=== PATIENT | female | born 1975 | race Caucasian/White ===

== ENCOUNTER 2023-07-30 23:24 | Emergency (ER) | payer BC, SELFPAY ==
[2023-07-30 23:37] VITALS: BP 192/109
[2023-07-30] MEDS: ZOFRAN 4 MG IV (23:52)
[2023-07-30] MEDS: DILAUDID 0.5 MG IV (23:52)
[2023-07-31 00:03] VITALS: BP 179/100
[2023-07-31 00:05] LABS: % Basophils 0.6 % (0-2); % Eosinophils 0.6 % (0-6); % Immature Granulocytes 0.3 % (0-0.5); % Lymphocytes 28.3 % (20.5-51.1); % Monocytes 9.5 % (1.7-9.3); % Neutrophils 60.7 % (42.2-75.2); Absolute Basophils 0.1 10^3/uL (0-0.2); Absolute Eosinophils 0.1 10^3/uL (0-0.7); Absolute Lymphocytes 2.5 10^3/uL (1.2-3.4); Absolute Monocytes 0.8 10^3/uL (0.1-0.6); Absolute Neutrophils 5.3 10^3/uL (1.4-6.5); Hemoglobin 12.5 g/dL (12.0-16.0); Mean Corp Hgb Conc. 34.7 g/dL (33.0-37.0); Mean Corpuscular Volume 80.5 fL (81.0-99.0); Mean Platelet Volume 9.1 fL (7.4-10.4); Nucleated Red Blood Cells % 0 %; Platelet Count 317 10^3/uL (130-400); Red Blood Cell Count 4.47 10^6/uL (4.20-5.40); White Blood Cell Count 8.7 10^3/uL (4.8-10.8)
[2023-07-31 00:19] LABS: ALT (SGPT) 341 U/L (0-35); AST (SGOT) 92 U/L (14-36); Albumin 4.2 g/dl (3.5-5.0); Alkaline Phosphatase 83 U/L (38-126); Blood Urea Nitrogen 25 mg/dl (7-17); Calcium 9.5 mg/dl (8.4-10.2); Carbon Dioxide 22 mmol/L (22-30); Chloride 107 mmol/L (98-107); Glucose 153 mg/dl (70-99); Lipase 100 U/L (23-300); Sodium 138 mmol/L (135-145); Total Bilirubin 0.4 mg/dl (0.2-1.3); Total Protein 6.9 g/dl (6.3-8.2); eGFR > 60.00
[2023-07-31] MEDS: TORADOL 15 MG IV (00:19)
--- NOTE | 2023-07-31 00:23 | ED.GENMED ---
History of Present Illness
General
Chief Complaint: Abdominal Pain
Source: patient
Exam Limitations: none
Time Seen by Provider: 07/30/23 23:51
Travel History
Have you had any contact with someone who has COVID-19?: No
Do you have any symptoms of coronavirus? Fever > 100 degrees, chills, cough, shortness of breath, sore throat, loss of taste or smell, muscle aches, or headache?: No
History of Present Illness
History of Present Illness:
47-year-old female presents complaining of severe left-sided abdominal pain with associated vomiting. She had a similar episode of pain 2 nights ago but this pain was in the epigastric area. She was seen at [facility] had a CT angio of her
chest and abdomen. There is no evidence of dissection. She was thought to have gastritis or esophagitis. However the pain today is different. No fevers. She has been moving her bowels without blood in the stool. No known sick contacts.
History of hysterectomy but still has her ovaries.
Past History
Past History
ED Past Medical History: GERD, Psychiatric (depression), Other ([facility]-churge Merari chronic sinusitis) and Other (Churg Merari/ asthma)
Social History
Tobacco: Non-smoker
Personal:
Living: with family
Phy Exam
Physical Exam
Physical Exam:
General: Uncomfortable appearing female no acute respiratory distress
HEENT: Normocephalic atraumatic
Heart: Regular rate and rhythm no murmurs
Lungs: Auscultation bilaterally no wheezing
Abdomen: Soft but tender to the left lower quadrant and left costovertebral angle. Mild rebound tenderness to left side. No guarding nondistended
Extremities: No cyanosis
Course
Orders/Labs/Results
Orders:
Orders
07/30/23 23:48
HYDROmorphone [Dilaudid] 0.5 mg .ROUTE .[facility]
Ondansetron Injectable [Zofran] 4 mg .ROUTE .[facility]-MED ONE
07/30/23 23:50
Ondansetron Injectable [Zofran] 4 mg IV NOW STA
07/30/23 23:52
HYDROmorphone [Dilaudid] 0.5 mg IV NOW STA
07/30/23 23:59
Complete Blood Count/With Diff Urgent
Comprehensive Metabolic Panel Urgent
Lipase Urgent
07/31/23 00:03
CT Abd/pel Without Iv Or Oral Urgent
Comment:
Reason For Exam: left flank pain
07/31/23 00:18
Ketorolac [Toradol] 15 mg IV NOW STA
07/31/23 00:19
Ketorolac [Toradol] 15 mg .ROUTE .[facility]-MED ONE
Abnormal Lab Results
07/30/23
23:59
Hct 36.0 L %
(37.0-47.0)
MCV 80.5 L fL
(81.0-99.0)
Absolute Monos (auto) 0.8 H 10^3/uL
(0.1-0.6)
Monocytes % 9.5 H %
(1.7-9.3)
BUN 25 H mg/dl
(7-17)
Glucose 153 H mg/dl
(70-99)
AST 92 H U/L
(14-36)
ALT 341 H U/L
(0-35)
07/30/23 23:59
07/30/23 23:59
Vital Signs
Initial and Last Documented VS:
Initial Vital Signs
Pulse Resp Pulse Ox
70 28 98
07/30/23 23:27 07/30/23 23:27 07/30/23 23:27
Last Documented Vital Signs
Temp Pulse Resp BP Pulse Ox
98.6 F 66 16 179/100 96
07/31/23 00:10 07/31/23 00:15 07/31/23 00:15 07/31/23 00:03 07/31/23 00:15
MDM/Problems Addressed
Differential Diagnosis Includes:
Left mid abdominal pain. Consider renal colic versus diverticulitis versus obstruction versus viral illness
Patient writhing in pain upon initial assessment. Initially treated with Dilaudid and Zofran. Labs pending. Will order CT of the abdomen and additional Toradol
*Critical Care Note
Total Time (30-74mins, 75-104mins- exclusive of procedures): Not Applicable
ED Attending Note
-
Portions of this chart may have been created with voice recognition software.� Occasional wrong word or��sound alike� substitutions may have occurred due to the inherent limitations of voice recognition software.
Discharge Plan
Departure
Patient Disposition: Home (Routine Discharge)
Patient with high blood pressure during this ER visit?: No
Discharge Problem:
Abdominal pain
Instructions: Abdominal Pain
Prescriptions:
No Action
albuterol sulfate [ProAir HFA] 8.5 GM HFA aerosol inhaler
8.5 gm IH PRN PRN (Reason: wheezing)
dexlansoprazole [Dexilant] 60 MG capsule,biphase delayed releas
60 mg PO DAILY
lorazepam [Ativan] 0.5 MG tablet
0.5 mg PO PRN PRN (Reason: Anxiety)
budesonide 0.5 MG/2 ML suspension for nebulization
0.5 mg IH BID PRN (Reason: sob)
Prednisone
7 mg PO .AM
Vitamin D3
50 mcg PO DAILY
arformoterol [Brovana] 15 MCG/2 ML solution for nebulization
15 mcg IH PRN PRN (Reason: wheezing)
Mometasone
2 gm inhalation HS PRN (Reason: wheezing)
fluoxetine [Prozac] 20 mg Capsule
20 mg PO DAILY
Nucala 100 mg/mL Auto-Injector
100 mg SC .2XPER MO
Breo Elipta 250/50
1 puff inhalation DAILY
Referrals:
Lala Marie MD [Family Provider] -
Activity Restrictions/Additional Instructions:
Please return here for worsening symptoms otherwise follow-up with your family doctor
Interventions
Interventions:
*Risk Screen - Suicide Last Done: 07/30/23 23:27
*General Assessment Last Done: 07/31/23 00:04
*Neglect/Abuse Screening Last Done: 07/30/23 23:27
ED- Fall Risk Assessment Last Done: 07/31/23 00:04
*ED COVID-19 Vaccine History Last Done: 07/31/23 00:04
*Nursing Disposition Last Done: 07/31/23 03:11
[facility] Assessment Last Done: 07/31/23 00:10
Discharge Date and Time
Discharge Date/Time: 07/31/23 01:44
Print Language: BURMESE
--- NOTE | 2023-07-31 03:05 | DOWNTIME ---
There was a [employer] Client [employer] Operator Downtime on 07/30/2023 from 0100 to 07/31/2023 at 0300. Downtime documentation of patient's care, including medication administrations, has been reconciled in the electronic record per guidelines. Refer to the
patient's paper chart under the miscellaneous tab to see printed paper medication records and downtime forms.
== END 2023-07-31 01:44 | disposition home or self-care (01) ==
LOC: EMR 23:24
PROVIDERS: Physician Assistant; EMERGENCY PHYSICIAN Emergency Medicine; FAMILY PHYSICIAN Family Medicine
DX: R10.9 Unspecified abdominal pain (principal); K21.9 Gastro-esophageal reflux disease without esophagitis; F32.A Depression, unspecified; J45.909 Unspecified asthma, uncomplicated
CPT/HCPCS: 99284; 74176; 80053; 83690; 85025

== ENCOUNTER → 2023-07-31 09:22 | Outpatient (REF) | payer BC, SELFPAY | LOC: RAD 09:22 | PROVIDERS: ATTENDING PHYSICIAN Nurse Practitioner Family | DX: R10.11 Right upper quadrant pain (principal) | CPT/HCPCS: 76700 ==

== ENCOUNTER → 2023-08-15 08:52 | Outpatient (REF) | payer BC, SELFPAY | LOC: RAD 08:52 | PROVIDERS: ATTENDING PHYSICIAN Nurse Practitioner Family | DX: R10.13 Epigastric pain (principal); R79.89 Other specified abnormal findings of blood chemistry | CPT/HCPCS: 78227; A9537; J2805 ==

== ENCOUNTER → 2023-09-05 15:08 | Outpatient (REF) | payer BC, SELFPAY | LOC: MRI 3T 15:08 | PROVIDERS: ATTENDING PHYSICIAN Student in an Organized Health Care Education/Training Program; FAMILY PHYSICIAN Family Medicine | DX: M51.36 Other intervertebral disc degeneration, lumbar region (principal); M54.16 Radiculopathy, lumbar region | CPT/HCPCS: 72148 ==

== ENCOUNTER 2023-10-11 06:21 | Day surgery (SDC) | payer BC, SELFPAY ==
[2023-10-11 08:11] VITALS: BMI 27.2
[2023-10-11 08:14] VITALS: BMI 27.2
[2023-10-11 08:15] VITALS: BP 134/96
[2023-10-11 10:10] VITALS: BP 111/80
[2023-10-11 10:16] VITALS: BP 127/80
[2023-10-11 10:30] VITALS: BP 141/84
== END 2023-10-11 10:45 | disposition home or self-care (01) ==
LOC: GI 06:21
PROVIDERS: ATTENDING PHYSICIAN Internal Medicine
DX: Z12.11 Encounter for screening for malignant neoplasm of colon (principal); K57.30 Diverticulosis of large intestine without perforation or abscess without bleeding; K64.8 Other hemorrhoids; K55.20 Angiodysplasia of colon without hemorrhage; D12.2 Benign neoplasm of ascending colon; K63.5 Polyp of colon; R10.13 Epigastric pain; R13.10 Dysphagia, unspecified; R11.2 Nausea with vomiting, unspecified; K44.9 Diaphragmatic hernia without obstruction or gangrene; K31.7 Polyp of stomach and duodenum; K31.89 Other diseases of stomach and duodenum; K29.50 Unspecified chronic gastritis without bleeding; Z83.710 Family history of adenomatous and serrated polyps
CPT/HCPCS: 45380; 43239; 88305; 88342

== ENCOUNTER → 2024-04-09 08:19 | Outpatient (REF) | payer BC, SELFPAY | LOC: WDC 08:19 | PROVIDERS: ATTENDING PHYSICIAN Family Medicine | DX: Z12.31 Encounter for screening mammogram for malignant neoplasm of breast (principal) | CPT/HCPCS: 77063; 77067 ==